=== PATIENT | female | born 1995 | race Caucasian/White ===

== ENCOUNTER 2020-05-01 16:35 | Emergency (ER) | payer BC ==
[~2020-05-01] VITALS: Ht 162.6 cm; Wt 75.0 kg
[2020-05-01] MEDS ORDERED: PRENATAL1 TA1 PO (16:59)
[2020-05-01 17:10] LABS: URINE BILIRUBIN - DIPSTICK NEGATIVE (NEGATIVE); URINE BLOOD DIPSTICK NEGATIVE (NEGATIVE); URINE COLOR YELLOW; URINE GLUCOSE - DIPSTICK NEGATIVE (NEGATIVE); URINE KETONE 15 mg/dL (NEGATIVE); URINE LEUK ESTERASE TRACE (NEGATIVE); URINE NITRITE - DIPSTICK NEGATIVE (Negative); URINE PH 5.5 (4.5-8.0); URINE PROTEIN - DIPSTICK NEGATIVE (NEG-TRACE); URINE SPECIFIC GRAVITY >=1.030; URINE UROBILINOGEN - DIPSTICK 0.2 E.U./dL (0.2)
[2020-05-01 17:20] LABS: HEMATOCRIT 32.1 % (37.0-47.0); IMMATURE GRANULOCYTES 0.4 % (0.0-5.0); MEAN CELL VOLUME 88.7 fL CALC (80.0-100.0); MEAN CORPUSCULAR HGB 30.4 pG CALC (26.0-32.0); MEAN CORPUSCULAR HGB CONC 34.3 g/dL CAL (32.0-36.0); NEUT# 7.98 thou/uL (2.00-7.15); RED BLOOD COUNT 3.62 mill/uL (4.20-5.60)
[2020-05-01 17:27] LABS: ANION GAP 11 (6-22 (CALC)); BUN 11 mg/dL (7-17); BUN/CREATININE RATIO 22 (12-20 (CALC)); CARBON DIOXIDE 23 mmol/l (22-30); CHLORIDE 102 mmol/l (95-108); CREATININE 0.5 mg/dL (0.5-1.0); GFR > 60 ML/MIN (>=60 (CALC)); GFR FOR AFR.AMER. > 60 ML/MIN (>=60 (CALC)); POTASSIUM 3.9 mmol/l (3.5-5.1); SODIUM 132 mmol/l (137-146)
[2020-05-01 18:11] LABS: BETA-HCG, QUANT(RESULT NUMBER) 88636 mIU/mL
[2020-05-01 18:51] VITALS: BP 127/86
== END 2020-05-01 18:56 | disposition home or self-care (01) | DRG 833 ==
LOC: ED 16:35
PROVIDERS: Family Medicine
DX: O46.91 Antepartum hemorrhage, unspecified, first trimester (principal); Z3A.11 11 weeks gestation of pregnancy
CPT/HCPCS: J2790